=== PATIENT | female | born 1995 | race Caucasian/White ===

== ENCOUNTER 2019-03-28 16:22 | Emergency (ER) | payer BC, SELFPAY ==
[2019-03-28 16:23] VITALS: BP 133/98; PULSE 78; RESP 16; TEMP 36.9; O2SAT 98; BMI 21.1
--- NOTE | 2019-03-28 16:53 | DCINST.ED_ITS ---
ED Disposition - Plan for ED Patient: Instructions: ED Contusion Nasal Vs Fx No X Ray Referrals: [facility] Doctor,Out of [Primary Care Provider] -
--- NOTE | 2019-03-28 16:53 | ED.DEP ---
ED Disposition - Plan for ED Patient: Instructions: ED Contusion Nasal Vs Fx No X Ray Referrals: [facility] Doctor,Out of [Primary Care Provider] -
[2019-03-28] MEDS: Ibuprofen 600 MG Tablet PO (16:54)
--- NOTE | 2019-03-28 17:00 | ED.DCSUM_ITS ---
- ER Visit Summary Date of Service: 03/28/19 Chief Complaint: Nose injury History of Present Illness: The patient is a 23 F presenting with injury to the nose. Patient states that she was playing fetch with her sister's dog. The dog's head came up and hit her in the face. She complains of nose pain. She denies loss of consciousness. She had bleeding from her nose which has resolved. Denies other injuries. Physical Examination: Vitals are stable. Patient is afebrile. Alert no acute distress. HEENT exam ecchymosis and tenderness to the nasal bridge. No septal hematoma. Dried blood in the nares. Neck is nontender Lungs are clear and equal bilaterally. Heart is regular rate and rhythm. Extremities are unremarkable. Skin is warm and dry. Remainder of exam is unremarkable. Emergency Department Course and Treatment: Patient is advised to use ice and NSAIDs for pain. Advised to follow-up with primary care physician. She is from [place]. She will follow-up with her primary care physician and ENT as needed. Advised return to ED for worsening complaints. Disposition: Discharge home Impression: Nose injury This note was generated with [employer] dictation software. It may contain incorrect words, spelling, and punctuation that were not noted in review of the chart prior to signing ED Disposition - Plan for ED Patient: Instructions: ED Contusion Nasal Vs Fx No X Ray Referrals: Zuly Arreola,Out of [Primary Care Provider] -
== END 2019-03-28 17:08 | disposition home or self-care (01) ==
LOC: ED 17:02
PROVIDERS: Emergency Provider Emergency Medicine
DX: S09.92XA Unspecified injury of nose, initial encounter (principal); W54.1XXA Struck by dog, initial encounter; Y93.9 Activity, unspecified; Y92.9 Unspecified place or not applicable
CPT/HCPCS: 99283